=== PATIENT | male | born 1995 | race Caucasian/White ===

== ENCOUNTER 2016-09-13 18:08 | Emergency (ER) | payer BC ==
[~2016-09-13] VITALS: Ht 172.7 cm; Wt 68.6 kg
[2016-09-13 18:14] VITALS: Ht 172.7 cm; Wt 68.6 kg
[2016-09-13] MEDS ORDERED: DICYCLOMINE HCL 10 MG CAP PO STA (18:35)
[2016-09-13] MEDS ORDERED: ACETAMINOPHEN 500 MG TAB PO STA (18:35)
[2016-09-13] MEDS ORDERED: SODIUM CHLORIDE 0.9% 1000ML 1,000 ML IV STA (18:35)
--- NOTE | 2016-09-13 18:39 | EMERGENCY ROOM VISIT NOTE ---
History Report prepared by Sury: Sang Fernandez Under the Supervision of: Brianna IrbyO. First contact with patient: 18:25 Chief Complaint: ABDOMINAL PAIN Stated Complaint: HORRIBLE STOMACH PAINS, FEVER OF 102.2 History of Present Illness The patient is a 21 year old male who presents to the Emergency Room with complaints of a worsening illness that started 3 days ago. He says that when his illness started, he had a sore lower abdomen, which he described as "achy" and "crampy". The patient states that he has been having almost 15-20 episodes of nonbloody diarrhea per day, and he has had a fever, which peaked today at 102.2. The patient notes that he feels sore all over. Today, the patient says that his abdominal pain worsened, and has actually become painful. The pain was so bad that he had to leave work today. He did take ibuprofen earlier today. The patient went to a walk-in clinic prior to arrival, and was recommended to come here for evaluation. He denies any hematochezia or vomiting. He has been able to eat and drink normally. The patient notes that he just got over having influenza B a week ago. He has not had any recent antibiotics. The patient cannot pinpoint where his illness started, and not had any known sick contacts. He has no history of stomach problems, or family history of stomach problems. No recent travel. Source of History: patient Onset: 3 days ago Position: other (global - illness) Timing: worsening Associated Symptoms: + abdominal pain, + diarrhea, + fevers, No hematochezia , No vomiting Note: Associated symptoms: Achy all over. Review of Systems See HPI for pertinent positives & negatives. A total of 10 systems reviewed and were otherwise negative. Past Medical & Surgical Medical Problems: (1) Influenza B (2) No chronic problems Family History No pertinent family history Social History Smoking Status: Never Smoker Marital Status: single Occupation Status: employed Current/Historical Medications Scheduled PRN Dicyclomine Hcl (Bentyl), 20 MG PO Q8 PRN for abdominal cramps Allergies Coded Allergies: No Known Allergies (Unverified , 09/13/16) Physical Exam Vital Signs Date Time Temp Pulse Resp B/P Pulse Ox O2 Delivery O2 Flow Rate FiO2 09/13/16 21:07 92 18 120/64 97 Room Air 09/13/16 20:54 38.2 09/13/16 20:18 39.5 105 18 138/62 98 Room Air 09/13/16 18:14 38.1 112 18 124/58 97 Room Air Physical Exam GENERAL: alert, well appearing, well nourished, no distress, non-toxic EYE EXAM: normal conjunctiva, PERRL and EOM's grossly intact OROPHARYNX: no exudate, no erythema, lips, buccal mucosa, and tongue normal and mucous membranes are moist NECK: supple, no nuchal rigidity, no adenopathy, non-tender LUNGS: Clear to auscultation. Normal chest wall mechanics HEART: no murmurs, S1 normal and S2 normal ABDOMEN: Right upper quadrant tenderness with percussion but not with palpation , no rebound or guarding. Dull to percussion. BACK: Back is symmetrical on inspection and there is no deformity, no midline tenderness, no CVA tenderness. SKIN: no rashes and no bruising UPPER EXTREMITIES: upper extremities are grossly normal. LOWER EXTREMITIES: No pitting edema. NEURO EXAM: Normal sensorium, cranial nerves II-XII grossly intact, normal speech, no gross weakness of arms, no gross weakness of legs. No drift. Finger to nose intact. Gross sensation intact. Medical Decision & Procedures ER Provider Diagnostic Interpretation: Chest/abdomen x-ray reading by me: Chest: no acute process. Abdomen: No SBO, no free air. Laboratory Results 09/13/16 18:40 Red Blood Count 4.74, Mean Corpuscular Volume 92.0, Mean Corpuscular Hemoglobin 33.1, Mean Corpuscular Hemoglobin Concent 36.0, Mean Platelet Volume 9.8, Neutrophils (%) (Auto) 84.3, Lymphocytes (%) (Auto) 4.9, Monocytes (%) (Auto) 10.4, Eosinophils (%) (Auto) 0.2, Basophils (%) (Auto) 0.1, Neutrophils # (Auto ) 10.19, Lymphocytes # (Auto) 0.59, Monocytes # (Auto) 1.25, Eosinophils # (Auto ) 0.02, Basophils # (Auto) 0.01 09/13/16 18:40 Test 09/13/16 18:40 White Blood Count 12.07 K/uL (4.8-10.8) Red Blood Count 4.74 M/uL (4.7-6.1) Hemoglobin 15.7 g/dL (14.0-18.0) Hematocrit 43.6 % (42-52) Mean Corpuscular Volume 92.0 fL (80-100) Mean Corpuscular Hemoglobin 33.1 pg (25-34) Mean Corpuscular Hemoglobin Concent 36.0 g/dl (32-36) Platelet Count 228 K/uL (130-400) Mean Platelet Volume 9.8 fL (7.4-10.4) Neutrophils (%) (Auto) 84.3 % Lymphocytes (%) (Auto) 4.9 % Monocytes (%) (Auto) 10.4 % Eosinophils (%) (Auto) 0.2 % Basophils (%) (Auto) 0.1 % Neutrophils # (Auto) 10.19 K/uL (1.4-6.5) Lymphocytes # (Auto) 0.59 K/uL (1.2-3.4) Monocytes # (Auto) 1.25 K/uL (0.11-0.59) Eosinophils # (Auto) 0.02 K/uL (0-0.5) Basophils # (Auto) 0.01 K/uL (0-0.2) RDW Standard Deviation 42.2 fL (36.4-46.3) RDW Coefficient of Variation 12.5 % (11.5-14.5) Immature Granulocyte % (Auto) 0.1 % Immature Granulocyte # (Auto) 0.01 K/uL (0.00-0.02) Anion Gap 10.0 mmol/L (3-11) Est Creatinine Clear Calc Drug Dose 103.6 ml/min Estimated GFR () 111.4 Estimated GFR (Non- 96.1 BUN/Creatinine Ratio 10.6 (10-20) Calcium Level 9.7 mg/dl (8.5-10.1) Total Bilirubin 0.7 mg/dl (0.2-1) Aspartate Amino Transf (AST/SGOT) 48 U/L (15-37) Alanine Aminotransferase (ALT/SGPT) 70 U/L (12-78) Alkaline Phosphatase 62 U/L (45-117) Total Protein 8.4 gm/dl (6.4-8.2) Albumin 4.6 gm/dl (3.4-5.0) Globulin 3.8 gm/dl (2.5-4.0) Albumin/Globulin Ratio 1.2 (0.9-2) Lipase 109 U/L (73-393) Laboratory results per my review. Medications Administered Medications (Trade) Dose Ordered Sig/Olaf Route Start Time Stop Time Status Last Admin Dose Admin Sodium Chloride (Nss 1000ml) 1,000 ml @ 999 mls/hr Q1H1M STAT IV 09/13/16 18:35 09/13/16 19:35 DC 09/13/16 19:02 999 MLS/HR Dicyclomine HCl (Bentyl Cap) 20 mg ONE STAT PO 09/13/16 18:35 09/13/16 18:37 DC 09/13/16 18:46 20 MG Acetaminophen (Tylenol Tab) 1,000 mg NOW STAT PO 09/13/16 18:35 09/13/16 18:37 DC 09/13/16 18:45 1,000 MG Ketorolac Tromethamine (Toradol Inj) 30 mg NOW STAT IV 09/13/16 20:13 09/13/16 20:15 DC 09/13/16 20:17 30 MG ED Course 1827: The patient was evaluated in room C7. A complete history and physical exam was performed. 1834: Ordered Tylenol Tab 1000 mg PO, Bentyl Cap 20 mg PO, NSS 1000 ml @ 999 mls /hr IV. 2004: I reevaluated the patient and he is feeling better but is still achy and having abdominal pain. 2012: Ordered Toradol Inj 30 mg IV. 2100: Temp improved, pain improved. Medical Decision Differential diagnoses include: viral illness, bacterial illness, C. difficile, inflammatory bowel disease, colitis. Pt improved here with IVF and meds. Well appearing despite complaints. Nontoxic , likely viral syndrome. VS stable and HR improved with IVF. No diarrhea while in the ER. Abd soft, NT, xrays reassuring. Did not feel warranted additional imaging at this time, discussed risks/benefits of CT with pt. Discussed hydration at home, f/u with PCP, sx to watch/return for, he verbalized understanding and was agreeable with plan. Doubt perf, appy, c.diff , IBS, IBD, mesenteric ischemia, colitis, diverticulitis. Scribe Attestation The scribe's documentation has been prepared under my direction and personally reviewed by me in its entirety. I confirm that the note above accurately reflects all work, treatment, procedures, and medical decision making performed by me. Departure Information Dispostion Home / Self-Care Prescriptions Dicyclomine Hcl (BENTYL) 20 Mg Tab 20 MG PO Q8 Y for abdominal cramps, #20 TAB Prov: Nehal Lynn, DO 09/13/16 Referrals Joseph Retana M.D. (PCP) Patient Instructions [facility] Additional Instructions Please use tylenol and ibuprofen as needed for fever and body aches. Please drink clear liquids frequently to stay well hydrated. You may eat as tolerated. If you develop any worsening pain, vomiting, persistent fevers, have black or bloody stools, or have any other new concerns, please return to the emergency room.
[2016-09-13 19:05] LABS: BASO % 0.1 %; BASO ABS # 0.01 K/uL (0-0.2); COMPLETE YES; EOS % 0.2 %; HEMATOCRIT 43.6 % (42-52); IG% 0.1 %; LYMPH % 4.9 %; LYMPH ABS # 0.59 K/uL (1.2-3.4); MEAN CORPUSCULAR HEMOGLOBIN 33.1 pg (25-34); MEAN PLATELET VOLUME 9.8 fL (7.4-10.4); MONO % 10.4 %; NEUT % 84.3 %; PLATELET COUNT 228 K/uL (130-400); RED BLOOD COUNT 4.74 M/uL (4.7-6.1); WHITE BLOOD COUNT 12.07 K/uL (4.8-10.8)
[2016-09-13 19:23] LABS: BUN/CREATININE RATIO 10.6 (10-20); CALCIUM 9.7 mg/dl (8.5-10.1); CREATININE 1.1 mg/dl (0.60-1.40); POTASSIUM 3.5 mmol/L (3.5-5.1)
[2016-09-13 19:26] LABS: ALB/GLOB RATIO 1.2 (0.9-2)
[2016-09-13] MEDS ORDERED: KETOROLAC TROMETHAMINE 30 MG/ML VIAL IV STA (20:13)
--- NOTE | 2016-09-13 20:31 | DIAGNOSTIC IMAGING REPORT ---
CHEST AND ABDOMEN 2 VIEWS HISTORY: Generalized abdominal pain. Diarrhea. COMPARISON: FINDINGS: The lungs are clear. The cardiomediastinal silhouette is within normal limits. There is no pneumoperitoneum or pneumatosis. The bowel gas pattern is unremarkable. No evidence for bowel obstruction. No pathologic calcifications. Old, healed left 11th rib fracture. IMPRESSION: No acute cardiopulmonary process. No evidence for bowel obstruction. Electronically signed by: Raghav Chun M.D. 09/13/2016 8:29 PM Dictated Date/Time: 09/13/2016 8:24 PM
[2016-09-13] MEDS ORDERED: DICY20TA35 PO (20:36)
[2016-09-13 20:54] VITALS: TEMP 38.2
[2016-09-13 21:07] VITALS: BP 120/64; PULSE 92; O2SAT 97
--- NOTE | 2016-09-17 08:21 | EDITING REQUIRED CODING QUERY ---
TREATMENT RENDERED WITHOUT A DIAGNOSIS 96 To promote full compliance with coding requirements relating to patient care, physician participation is requested in all cases of contract accountant uncertainty. Please assist us with the question(s) below: DOS 09/13/16 Coding Question: Dr. Lynn, can you please add a final diagnosis for this patient Provider Response: Thank you Rosaura Beverly
== END 2016-09-13 21:10 | disposition home or self-care (01) ==
LOC: C.EDB 18:08 → C.EDC 21:10
DX: R10.9 Unspecified abdominal pain (principal); E86.0 Dehydration; B34.9 Viral infection, unspecified

== ENCOUNTER 2022-06-11 16:38 | Inpatient (IN) ==
[2022-06-11 17:50] LABS: Basophils # (auto) 0.03 K/uL (0-0.2); Basophils % (auto) 0.3 %; Eosinophils # (auto) 0.07 K/uL (0-0.50); Eosinophils % (auto) 0.7 %; Hematocrit (blood only) 44.2 % (40.1-51.0); Hemoglobin 15.6 g/dl (14.0-18.0); Immature Granulocytes # (auto) 0.03 K/uL (0.00-0.02); Immature Granulocytes % (auto) 0.3 %; Lymphocytes # (auto) 0.93 K/uL (1.2-3.4); Lymphocytes % (auto) 9.9 %; Mean Corpuscular Hemoglobin 34.4 pg (25.0-34.0); Mean Corpuscular Hgb Conc 35.3 g/dL (32.0-36.0); Mean Corpuscular Volume 97.4 fL (80.0-100.0); Mean Platelet Volume 10.2 fL (9.4-12.4); Monocytes # (auto) 0.98 K/uL (0.24-0.82); Monocytes % (auto) 10.5 %; Neutrophils # (auto) 7.33 K/uL (1.4-6.5); Neutrophils % (auto) 78.3 %; Platelet Count 215 K/uL (130-400); RDW Coefficient of Variation 12.2 % (11.5-14.5); RDW Standard Deviation 43.8 fL (36.4-46.3); Red Blood Count 4.54 M/uL (4.63-6.08); White Blood Count 9.37 K/ul (4.8-10.8)
[2022-06-11 17:55] LABS: Appearance Urine Clear (Clear); Bacteria Urine Automated Negative (Negative); Blood Urine Negative (Negative); Color Urine Dark Yellow; Glucose Urine UA Negative (Negative); Ketones Urine 1+ (Negative); Leukocyte Esterase Urine Negative (Negative); Nitrite Urine Negative (Negative); Protein Urine 1+ (Negative); RBC Urine Automated 0-4 /hpf (0-4); Specific Gravity Urine 1.027 (1.000-1.030); Urobilinogen Urine Negative (Negative); pH Urine 5.5 (4.5-7.5)
[2022-06-11 17:57] LABS: Bilirubin Urine 1+ (Negative)
[2022-06-11 18:10] LABS: Albumin Globulin Ratio 1.8 (0.9-2); Albumin Level 5.1 gm/dl (3.4-5.0); BUN Creatinine Ratio 9.6 (10-20); Bilirubin,Total 0.7 mg/dl (0.2-1.0); Calcium 9.9 mg/dl (8.5-10.1); Est GFR (African American) 148.4 ml/min; Globulin 2.8 gm/dl (2.5-4.0); Total Protein 7.9 gm/dl (6.0-8.3)
[2022-06-11] MEDS ORDERED: SODIUM CHLORIDE 0.9% 1000ML 1,000 ML IV ONE (19:17)
[2022-06-11] MEDS ORDERED: FAMOTIDINE 20 MG in SYRINGE 3 ML IV STA (19:17)
[2022-06-11] MEDS ORDERED: ONDANSETRON INJ 2 MG/ML 2 ML VIAL IV STA (19:23)
[2022-06-11] MEDS ORDERED: MoRPHine SULFATE 4 MG/ML 1 ML CARP\\VIAL IV STA (19:23)
[2022-06-11] MEDS ORDERED: OPTIRAY 350 100ml IV ONE (19:40)
--- NOTE | 2022-06-11 19:52 | CT Scan Report ---
ABDOMEN AND PELVIS CT WITH IV CONTRAST CT DOSE: 286.26 mGy.cm HISTORY: Generalized Abd pain, elevated LFT, LLQ, periumbilical pain TECHNIQUE: Multiaxial CT images of the abdomen and pelvis were performed following the use of intrave nous contrast. A dose lowering technique was utilized adhering to the principles of ALARA. COMPARISON STUDY: Chest and abdominal series 09/13/2016. FINDINGS: The lung bases are clear. No pneumoperitoneum. No pneumatosis. No acute fractures identifie d. There is an old, healed left posterior 11th rib fracture. Severe hepatic steatosis. The gallbladde r, spleen, adrenal glands, and kidneys are unremarkable. No hydronephrosis. There is near diffuse per ipancreatic edema/inflammatory change. This is consistent with an acute pancreatitis. No peripancreat ic fluid collections or pancreatic necrosis identified at this time. The main portal vein and superio r mesenteric veins are patent. Normal caliber abdominal aorta. No retroperitoneal lymphadenopathy. Tr carley ascites. The bladder is unremarkable. A few colonic diverticula. No evidence for acute diverticul itis. Mild inflammatory change surrounding the splenic flexure of the colon and duodenum is likely du e to the adjacent acute pancreatitis. Otherwise, no definite bowel wall thickening or obstruction. No rmal appendix. IMPRESSION: 1. Diffuse peripancreatic inflammatory change/edema consistent with an acute pancreatitis. 2. Severe hepatic steatosis. 3. Trace ascites. 4. Colonic diverticulosis. No evidence for acute diverticulitis. ACT 112: Negative or not required by law. Electronically signed by: Raghav Chun M.D. 06/11/2022 7:51 PM
--- NOTE | 2022-06-11 20:07 | Emergency Department Note ---
Impression & Plan Pancreatitis ED Provider Note CHIEF COMPLAINT: Abdominal pain HISTORY OF PRESENT ILLNESS: This 27-year-old male patient presents to the emergency department with complaints of abdominal pain. The patient states 2 to 3 days ago he began with epigastric abdominal pain and had several episodes of sharp pain through to his back. He states the pain has since radiated to the periumbilical region and now he feels tender to the lower abdomen. He is taken several doses of antacids in an effort to alleviate the discomfort. He states he feels constipated but did have several small bowel movements over the last few days. He was visiting their camp with his uncles this weekend and had heavy alcohol consumption. Patient states he drinks about once weekly regularly. Patient denies any fevers or blood in the stools. He has not had any significant vomiting. Patient denies any trauma to the abdomen. He does not believe he has been exposed to hepatitis in the past. He denies any past s urgical history on the abdomen. REVIEW OF SYSTEMS: A review of systems was performed with positives and pertinent negatives listed in the history of present illness. 10 systems were reviewed and are otherwise negative. ALLERGIES: see below MEDICATIONS: see below PMH: see below SOCIAL HISTORY: see below DDx: Appendicitis, diverticulitis, UTI, obstruction, mesenteric ischemia, aortic pathology, inflammatory bowel disease, renal colic, PUD, pancreatitis, biliary pathology, hernia, volvulus, constipation, as well as other pathologies. PHYSICAL EXAM: Vital signs reviewed. Noted to be hypertensive General: Well-appearing 27-year-old, in some discomfort. HEENT: No scleral icterus, PERRLA, neck supple. Atraumatic. Cardiovascular: Regular rate and rhythm, no extra sounds. Pulmonary: Clear to auscultation bilaterally, normal work of breathing. Abdomen: Soft, tender to palpation over the periumbilical region and left lower quadrant, minimal discomfort over the epigastric region, nondistended, positive bowel sounds. Musculoskeletal: Atraumatic, no peripheral edema. Neurologic: Patient awake alert and oriented x 3, speech is clear Skin: Warm, dry, no rash EMERGENCY DEPARTMENT COURSE/MDM: This patient was evaluated and appeared to be in no significant distress. He was a bit anxious on my initial exam. IV access was obtained and laboratory work was drawn. He was hydrated with normal saline solution, given IV morphine and Zofran for his discomfort. Patient was also giv en 20 mg of IV Pepcid. Laboratory work was reviewed and reveals elevated liver enzymes as well as a lipase of 550. CT imaging of the abdomen pelvis was ordered and is indicative of peripancreatic infiltration and severe hepatic steatosis. Patient will require hospitalization. Hospitalist service was contacted for further evaluation and management. Patient was made aware of the findings and plan and agreed. MONITORING: An order for cardiac monitoring was placed and the patient is noted to be in a normal sinus rhythm at 85 beats per minute. RADIOLOGY: See below DISPOSITION: Admission Past Med/Surg History Medical History Pancreatitis Surgical History No significant past surgical history Family History Unknown No problems noted. Uncle Pancreatitis Social History Smoking Status: Light tobacco smoker Hx Alcohol Use: Yes Preferred Language: Frisian Communication Ability: Effective Mail[employer] Required: No Beliefs That Will Affect Care: None Current Living Situation: Parent Feels Safe at Home: Yes Assistive Devices: None Allergies Allergies Allergy/AdvReac Type Severity Reaction Status Date / Time No Known Allergies Allergy Unverified 09/13/16 18:29 Home Meds Home Medications Medication Instructions Recorded Confirmed No Known Home Medications 06/11/22 06/11/22 Results & Data (ED) Vital Signs Vital Signs - 24 hr 06/11/22 16:43 Temperature 36.2 C L Temperature Source Temporal Artery Scan Pulse Rate 85 Pulse Rhythm Regular Pulse Strength Normal Respiratory Rate 20 Respiratory Effort / Characteristics Non-Labored Spontaneous Respiratory Depth Normal Respiratory Pattern Regular Blood Pressure 168/102 H Blood Pressure Mean 124 Blood Pressure Position Sitting Pulse Oximetry 98 Oxygen Delivery Method Room Air Sepsis Recent Fever Within 48 Hours No Sepsis New/Unexplained Change in Mental Status No Sepsis Action Taken by Nursing No Action Required Home Medications Current Medication List: was personally reviewed by me Laboratory Data Attestation: I reviewed the patient's lab results. 06/11/22 17:37 06/11/22 17:37 Lab Results 06/11/22 06/11/22 06/11/22 Range/Units 17:37 17:37 17:37 WBC 9.37 (4.8-10.8) K/ul RBC 4.54 L (4.63-6.08) M/uL Hgb 15.6 (14.0-18.0) g/dl Hct 44.2 (40.1-51.0) % MCV 97.4 (80.0-100.0) fL MCH 34.4 H (25.0-34.0) pg MCHC 35.3 (32.0-36.0) g/dL RDW Std Deviation 43.8 (36.4-46.3) fL RDW Coeff of Brett 12.2 (11.5-14.5) % Plt Count 215 (130-400) K/uL MPV 10.2 (9.4-12.4) fL Immature Gran % (Auto) 0.3 % Neut % (Auto) 78.3 % Lymph % (Auto) 9.9 % Maury % (Auto) 10.5 % Eos % (Auto) 0.7 % Baso % (Auto) 0.3 % Neut # (Auto) 7.33 H (1.4-6.5) K/uL Lymph # (Auto) 0.93 L (1.2-3.4) K/uL Maury # (Auto) 0.98 H (0.24-0.82) K/uL Eos # (Auto) 0.07 (0-0.50) K/uL Baso # (Auto) 0.03 (0-0.2) K/uL Immature Gran # (Auto) 0.03 H (0.00-0.02) K/uL Sodium 140 (136-145) mmol/L Potassium 4.0 (3.5-5.1) mmol/L Chloride 103 (98-107) mmol/L Carbon Dioxide 27 (21-32) mmol/L Anion Gap 10 (3-11) BUN 7 (6-23) mg/dl Creatinine 0.73 (0.6-1.4) mg/dl Est Cr Clr Drug Dosing 133.0 ml/min Est GFR ( Amer) 148.4 ml/min Est GFR (Non-Af Amer) 128.0 ml/min BUN/Creatinine Ratio 9.6 L (10-20) Glucose 94 (70-99(Fasting)) mg/dl Calcium 9.9 (8.5-10.1) mg/dl Total Bilirubin 0.7 (0.2-1.0) mg/dl AST 156 H (13-39) U/L ALT 139 H (7-52) U/L Alkaline Phosphatase 43 (34-104) U/L Total Protein 7.9 (6.0-8.3) gm/dl Albumin 5.1 H (3.4-5.0) gm/dl Globulin 2.8 (2.5-4.0) gm/dl Albumin/Globulin Ratio 1.8 (0.9-2) Lipase 555 H (11-82) U/L Urine Color Dark Yellow Urine Appearance Clear (Clear) Urine pH 5.5 (4.5-7.5) Ur Specific [place] 1.027 (1.000-1.030) Urine Protein 1+ H (Negative) Urine Glucose (UA) Negative (Negative) Urine Ketones 1+ H (Negative) Urine Blood Negative (Negative) Urine Nitrite Negative (Negative) Urine Bilirubin 1+ H (Negative) Urine Urobilinogen Negative (Negative) Ur Leukocyte Esterase Negative (Negative) Urine WBC (Auto) 1-5 (0-5) /hpf Urine RBC (Auto) 0-4 (0-4) /hpf U Hyaline Cast (Auto) 1-5 (0-5) /lpf U Epithel Cells (Auto) 5-10 H (0-5) /lpf Urine Bacteria (Auto) Negative (Negative) SARS-CoV-2, RNA, NAAT (NEGATIVE) 06/11/22 Range/Units 20:12 WBC (4.8-10.8) K/ul RBC (4.63-6.08) M/uL Hgb (14.0-18.0) g/dl Hct (40.1-51.0) % MCV (80.0-100.0) fL MCH (25.0-34.0) pg MCHC (32.0-36.0) g/dL RDW Std Deviation (36.4-46.3) fL RDW Coeff of Brett (11.5-14.5) % Plt Count (130-400) K/uL MPV (9.4-12.4) fL Immature Gran % (Auto) % Neut % (Auto) % Lymph % (Auto) % Maury % (Auto) % Eos % (Auto) % Baso % (Auto) % Neut # (Auto) (1.4-6.5) K/uL Lymph # (Auto) (1.2-3.4) K/uL Maury # (Auto) (0.24-0.82) K/uL Eos # (Auto) (0-0.50) K/uL Baso # (Auto) (0-0.2) K/uL Immature Gran # (Auto) (0.00-0.02) K/uL Sodium (136-145) mmol/L Potassium (3.5-5.1) mmol/L Chloride (98-107) mmol/L Carbon Dioxide (21-32) mmol/L Anion Gap (3-11) BUN (6-23) mg/dl Creatinine (0.6-1.4) mg/dl Est Cr Clr Drug Dosing ml/min Est GFR ( Amer) ml/min Est GFR (Non-Af Amer) ml/min BUN/Creatinine Ratio (10-20) Glucose (70-99(Fasting)) mg/dl Calcium (8.5-10.1) mg/dl Total Bilirubin (0.2-1.0) mg/dl AST (13-39) U/L ALT (7-52) U/L Alkaline Phosphatase (34-104) U/L Total Protein (6.0-8.3) gm/dl Albumin (3.4-5.0) gm/dl Globulin (2.5-4.0) gm/dl Albumin/Globulin Ratio (0.9-2) Lipase (11-82) U/L Urine Color Urine Appearance (Clear) Urine pH (4.5-7.5) Ur Specific [place] (1.000-1.030) Urine Protein (Negative) Urine Glucose (UA) (Negative) Urine Ketones (Negative) Urine Blood (Negative) Urine Nitrite (Negative) Urine Bilirubin (Negative) Urine Urobilinogen (Negative) Ur Leukocyte Esterase (Negative) Urine WBC (Auto) (0-5) /hpf Urine RBC (Auto) (0-4) /hpf U Hyaline Cast (Auto) (0-5) /lpf U Epithel Cells (Auto) (0-5) /lpf Urine Bacteria (Auto) (Negative) SARS-CoV-2, RNA, NAAT NEGATIVE (NEGATIVE) Administered Medications Discontinued Medications Folic Acid (Folic Acid 1 Mg Tab) 1 mg PO QAM RASHMI Stop: 07/12/22 08:59 Last Admin: 06/13/22 09:18 Dose: 1 mg Documented By: Admin: 06/12/22 10:36 Dose: 1 mg Documented By: CAROL Famotidine 20 mg/ Syringe 5 mls @ 2.5 mls/min IV NOW STA Stop: 06/11/22 19:18 Last Admin: 06/11/22 20:40 Dose: 2.5 mls/min Documented By: CARMEN Sodium Chloride (Nss 1000ml) 1,000 mls @ 999 mls/hr IV .Q1H1M ONE Stop: 06/11/22 20:17 Last Infusion: 06/11/22 23:58 Dose: 0 mls/hr Documented By: Admin: 06/11/22 19:46 Dose: 999 mls/hr Documented By: ABDI Lactated Ringer's (Lr) 500 mls @ 999 mls/hr IV .Q31M ONE Stop: 06/11/22 21:36 Last Infusion: 06/11/22 23:58 Dose: 0 mls/hr Documented By: Admin: 06/11/22 21:28 Dose: 999 mls/hr Documented By: ABDI Lactated Ringer's (Lr) 1,000 mls @ 125 mls/hr IV .Q8H [facility] Stop: 07/11/22 22:03 Last Admin: 06/13/22 06:07 Dose: 125 mls/hr Documented By: Infusion: 06/13/22 00:48 Dose: 0 mls/hr Documented By: Admin: 06/12/22 17:19 Dose: 125 mls/hr Documented By: Infusion: 06/12/22 17:19 Dose: 125 mls/hr Documented By: Admin: 06/12/22 09:53 Dose: 125 mls/hr Documented By: Infusion: 06/12/22 09:53 Dose: 125 mls/hr Documented By: Admin: 06/12/22 07:00 Dose: 125 mls/hr Documented By: Infusion: 06/12/22 06:29 Dose: 0 mls/hr Documented By: Admin: 06/11/22 22:29 Dose: 125 mls/hr Documented By: ABDI Famotidine 20 mg/ Syringe 5 mls @ 2.5 mls/min IV Q12H RASHMI Stop: 07/12/22 08:59 Last Admin: 06/13/22 09:15 Dose: 2.5 mls/min Documented By: Admin: 06/12/22 21:20 Dose: 2.5 mls/min Documented By: Admin: 06/12/22 10:37 Dose: 2.5 mls/min Documented By: CAROL Pantoprazole Sodium 40 mg/ (Syringe) 10 mls @ 5 mls/min IV BID RASHMI Stop: 07/12/22 08:59 Last Admin: 06/13/22 09:18 Dose: 5 mls/min Documented By: Admin: 06/12/22 21:17 Dose: 5 mls/min Documented By: Admin: 06/12/22 10:37 Dose: 5 mls/min Documented By: CAROL Magnesium Sulfate/Dextrose (Magnesium Sulfate / D5w) 1 gm in 100 mls @ 50 mls/hr IV Q2H RASHMI Stop: 06/12/22 17:59 Last Infusion: 06/12/22 19:13 Dose: 0 mls/hr Documented By: Admin: 06/12/22 17:11 Dose: 50 mls/hr Documented By: Infusion: 06/12/22 16:36 Dose: 0 mls/hr Documented By: Admin: 06/12/22 14:22 Dose: 50 mls/hr Documented By: CAROL Ioversol (Optiray 350 100ml) 88 ml IV ONCE ONE Stop: 06/11/22 19:41 Last Admin: 06/11/22 19:42 Dose: 88 ml Documented By: KALI Ketorolac Tromethamine (Ketorolac Tromethamine 15 Mg/Ml Vial) 15 mg IV Q6H PRN PRN Reason: Mild Pain Stop: 06/16/22 22:03 Last Admin: 06/12/22 21:20 Dose: 15 mg Documented By: Admin: 06/11/22 22:28 Dose: 15 mg Documented By: ABDI Morphine Sulfate (Morphine Sulfate 4 Mg/Ml 1 Ml Carp\Vial) 4 mg IV NOW STA Stop: 06/11/22 19:24 Last Admin: 06/11/22 19:45 Dose: 4 mg Documented By: AMS Morphine Sulfate (Morphine Sulfate 4 Mg/Ml 1 Ml Carp\Vial) 4 mg IV Q3H PRN PRN Reason: Severe Pain Stop: 06/25/22 22:03 Last Admin: 06/12/22 03:18 Dose: 4 mg Documented By: MED Ondansetron HCl (Ondansetron Inj 2 Mg/Ml 2 Ml Vial) 4 mg IV NOW STA Stop: 06/11/22 19:24 Last Admin: 06/11/22 19:45 Dose: 4 mg Documented By: AMS Ondansetron HCl (Ondansetron Inj 2 Mg/Ml 2 Ml Vial) 4 mg IV Q6H PRN PRN Reason: Nausea Stop: 07/11/22 22:03 Last Admin: 06/12/22 03:15 Dose: 4 mg Documented By: MED Thiamine HCl (Thiamine Hcl 100 Mg Tab) 100 mg PO QAM RASHMI Stop: 07/12/22 08:59 Last Admin: 06/13/22 09:18 Dose: 100 mg Documented By: Admin: 06/12/22 10:36 Dose: 100 mg Documented By: CAROL Imaging Data Radiologist's Impression: Abdomen/Pelvis CT 06/11/22 19:[address] WITH IV CONTRAST CT DOSE: 286.26 mGy.cm HISTORY: Generalized Abd pain, elevated LFT, LLQ, periumbilical pain TECHNIQUE: Multiaxial CT images of the abdomen and pelvis were performed following the use of intravenous contrast. A dose lowering technique was utilized adhering to the principles of ALARA. COMPARISON STUDY: Chest and abdominal series 09/13/2016. FINDINGS: The lung bases are clear. No pneumoperitoneum. No pneumatosis. No acut e fractures identified. There is an old, healed left posterior 11th rib fracture. Severe hepatic steatosis. The gallbladder, spleen, adrenal glands, and kidneys are unremarkable. No hydronephrosis. There is near diffuse peripancreatic edema/inflammatory change. This is consistent with an acute pancr eatitis. No peripancreatic fluid collections or pancreatic necrosis identified at this time. The main portal vein and superior mesenteric veins are patent. Normal caliber abdominal aorta. No retroperitoneal lymphadenopathy. Trace ascites. The bladder is unremarkable. A few colonic diverticula. No evidence for acute diverticulitis. Mild inflammatory change surrounding the splenic flexure of the colon and duodenum is likely due to the adjacent acute pancreatitis. Otherwise, no definite bowel wall thickening or obstruction. Normal appendix. IMPRESSION: 1. Diffuse peripancreatic inflammatory change/edema consistent with an acute pancreatitis. 2. Severe hepatic steatosis. 3. Trace ascites. 4. Colonic diverticulosis. No evidence for acute diverticulitis. ACT 112: Negative or not required by law. Electronically signed by: Raghav Chun M.D. 06/11/2022 7:51 PM Discharge Plan Visit Data Chief Complaint: Abdominal Pain Stated Complaint: SEVERE STOMACH PAINS,FEVER, ED Provider: Linda Viramontes Discharge Problem: Pancreatitis Patient Disposition: Admitted As Inpatient Discharge Instructions Interventions: ED Discharge Assessment Last Done: 06/11/22 22:13 : Pancreatitis Qualifiers: Chronicity: acute Pancreatitis type: alcohol induced Acute pancreatitis complication: unspecified Qualified Code(s): K85.20 - Alcohol induced acute pancreatitis without necrosis or infection
--- NOTE | 2022-06-11 20:48 | History & Physical Report ---
Date of Service June 11, 2022 Assessment & Plan (1) Pancreatitis: Plan: - 3 days of central abdominal pain with radiation to back, nausea following binge drinking this weekend. - Lipase 555. - CTAP: Diffuse peripancreatic inflammatory change/edema consistent with an acute pancreatitis. Severe hepatic steatosis. Trace ascites. Colonic diverticulosis. No evidence for acute diverticulitis. - Received IVF in ED, continue IVF overnight, IV Toradol, morphine for pain control, Zofran for nausea/vomiting. - NPO for now, can consider advancing diet tomorrow afternoon/evening if pain well controlled and improving. - AWSS at risk protocol. Patient denies regular alcohol use beyond once/weekly or history of withdrawal, though CT A/P has severe hepatic steatosis. Plan - Admit to med/surg with telemetry for AWSS. - SCDs for VTE ppx; defer chemoppx given age, mobility. - Full Code. History of Present Illness Chief Complaint: abdominal pain x 2 days Primary Care Provider: Joseph Retana MD Ryder Meza is a 27-year-old previously healthy male who is presenting today with abdominal pain. This weekend he was at his [place] binge drinking, reports about 10 alcoholic drinks Saturday evening. Saturday morning he woke up with abdominal pain that was worse after eating a light breakfast. He continued to drink a couple alcoholic beverages Saturday, but notes the abdominal pain persisted and got worse. It is primarily in the central abdomen around his umbilicus with radiation to his back. He has not noticed any fever or chills or vomiting but has been nauseous with minimal oral intake since then. He notes other than this weekend, he typically only drinks 12 times/week, does not have a history of regular alcohol use or withdrawal. No drug use, rare tobacco use. No trauma to the abdomen. Upon presentation to the ED, he is hypertensive 169/106, otherwise vital signs within norm limits and stable. Labs notable for a lipase of 555, AST 156, ALT 139. His T bili is 0.7. CT A/P shows diffuse peripancreatic inflammatory changes and edema consistent with an acute pancreatitis, severe hepatic steatosis, trace ascites and diverticulosis without evidence of acute diverticulitis. Allergies Allergy/AdvReac Type Severity Reaction Status Date / Time No Known Allergies Allergy Unverified 09/13/16 18:29 Home Medications Medication Instructions Recorded Confirmed Type No Known Home Medications 06/11/22 06/11/22 History Past Med/Surg History Medical History (Updated 06/11/22 @ 21:48 by Tamika Krause PA-C) Pancreatitis Surgical History (Updated 06/11/22 @ 21:50 by Tamika Krause PA-C) No significant past surgical history Family History (Updated 06/11/22 @ 21:49 by Tamika Krause PA-C) Unknown No problems noted. Uncle Pancreatitis Social History Smoking Status: Light tobacco smoker Hx Alcohol Use: Yes Preferred Language: [place] Communication Ability: Effective [employer] Required: No Beliefs That Will Affect Care: None Current Living Situation: Parent Feels Safe at Home: Yes Safety Concerns: Feels Safe At This Time Assistive Devices: None Review of Systems Review of Systems: Constitutional: No fever/chills, weakness, fatigue, myalgias, anorexia, night sweats Eyes: No diplopia, no worsening or blurred vision ENT: normal hearing, no trouble swallowing Respiratory: No cough, sputum, dyspnea at rest or on exertion Cardiovascular: No chest pain, tightness or palpitations Abdomen: abdominal pain, nausea x 3 days : Denies dysuria, hematuria, increased urgency/frequency, urinary retention Musculoskeletal: No joint pain, calf pain, swelling Neurologic: No weakness, numbness/tingling, or balance problems Psychiatric: No anxiety or depression Skin: No rash or itch Physical Exam Physical Exam: General: awake, alert, no apparent distress Head: Normocephalic, atraumatic ENT: PERRL, EOMI, no pharyngeal exudate, mucous membranes moist Chest: Clear to auscultation, on room air, no adventitious breath sounds Cardiac: Regular rate and rhythm, no murmur, no JVD, normal peripheral pulses, good capillary refill Abdominal: TTP in central abdomen around umbilicus without rebound or guarding; NABS x 4 quadrants, soft Extremities: Normal inspection, no peripheral edema or erythema, calfs nontender to palpation Psych: Normal mood and affect Neuro: AAO x 3, strength intact bilaterally and rated 5/5, no motor deficits, speech is clear, no peripheral sensory deficits Skin: no rash or erythema Results & Data Results & Data ([facility]) Vital Signs (Past 12 Hours) Vital Signs Temp Pulse Resp BP Pulse Ox O2 Del Method 06/11/22 16:43 36.2 C L 85 20 168/102 H 98 Room Air Laboratory Results Abnormal lab results 06/11/22 06/11/22 06/11/22 Range/Units 17:37 17:37 17:37 RBC 4.54 L (4.63-6.08) M/uL MCH 34.4 H (25.0-34.0) pg Neut # (Auto) 7.33 H (1.4-6.5) K/uL Lymph # (Auto) 0.93 L (1.2-3.4) K/uL Hand # (Auto) 0.98 H (0.24-0.82) K/uL Immature Gran # (Auto) 0.03 H (0.00-0.02) K/uL BUN/Creatinine Ratio 9.6 L (10-20) AST 156 H (13-39) U/L ALT 139 H (7-52) U/L Albumin 5.1 H (3.4-5.0) gm/dl Lipase 555 H (11-82) U/L Urine Protein 1+ H (Negative) Urine Ketones 1+ H (Negative) Urine Bilirubin 1+ H (Negative) U Epithel Cells (Auto) 5-10 H (0-5) /lpf Diagnostic Findings Abdomen/Pelvis CT 06/11/22 19:[address] WITH IV CONTRAST CT DOSE: 286.26 mGy.cm HISTORY: Generalized Abd pain, elevated LFT, LLQ, periumbilical pain TECHNIQUE: Multiaxial CT images of the abdomen and pelvis were performed following the use of intravenous contrast. A dose lowering technique was utilized adhering to the principles of ALARA. COMPARISON STUDY: Chest and abdominal series 09/13/2016. FINDINGS: The lung bases are clear. No pneumoperitoneum. No pneumatosis. No acute fractures identified. There is an old, healed left posterior 11th rib fracture. Severe hepatic steatosis. The gallbladder, spleen, adrenal glands, and kidneys are unremarkable. No hydronephrosis. There is near diffuse peripancreatic edema/inflammatory change. This is consistent with an acute pancreatitis. No peripancreatic fluid collections or pancreatic necrosis identified at this time. The main portal vein and superior mesenteric veins are patent. Normal caliber abdominal aorta. No retroperitoneal lymphadenopathy. Trace ascites. The bladder is unremarkable. A few colonic diverticula. No evidence for acute diverticulitis. Mild inflammatory change surrounding the splenic flexure of the colon and duodenum is likely due to the adjacent acute pancreatitis. Otherwise, no definite bowel wall thickening or obstruction. Normal appendix. IMPRESSION: 1. Diffuse peripancreatic inflammatory change/edema consistent with an acute pancreatitis. 2. Severe hepatic steatosis. 3. Trace ascites. 4. Colonic diverticulosis. No evidence for acute diverticulitis. ACT 112: Negative or not required by law. Electronically signed by: Raghav Chun M.D. 06/11/2022 7:51 PM Code Status & VTE Plan Code Status Full Code. Supervising Physician Co-Signing Physician Notes attending addendum: I have physically seen this patient, have supervised the KAYLYNN's activities, and agree with the H&P unless as otherwise noted. Assessment and Plan: Transaminitis/pancreatitis- Likely secondary to alcohol abuse AST 156, ALT 139, lipase 555 on admission Follow labs serially CT showing severe hepatic steatosis and acute pancreatitis Alcohol use issues- CT showing severe hepatic steatosis with suggest the patient's alcohol intake is more than he admits AWSS protocol Alcohol cessation counseling Remaining orders and notations as noted PG Care Time/CCT Total # of Minutes Spent Total Time Spent with Patient: Total time spent is greater than 50% in coordination of care (as documented) at patient's floor/unit and/or counseling patient: Coding Level of Care Code 09566 INT INP/OBS CARE MIN Diagnoses Pancreatitis K85.90
[2022-06-11] MEDS ORDERED: LACTATED RINGER'S 500 ML IV ONE (21:06)
[2022-06-11] MEDS ORDERED: ONDANSETRON INJ 2 MG/ML 2 ML VIAL IV PRN (22:04)
[2022-06-11] MEDS ORDERED: MoRPHine SULFATE 2 MG/ML CARP IV PRN (22:04)
[2022-06-11] MEDS ORDERED: MoRPHine SULFATE 4 MG/ML 1 ML CARP\\VIAL IV PRN (22:04)
[2022-06-11] MEDS: KETOROLAC TROMETHAMINE 15 MG/ML VIAL IV PRN (22:28)
[2022-06-11] MEDS: LACTATED RINGER'S 1,000 ML IV SCH (22:29)
[2022-06-11] MEDS ORDERED: Ativan PO Alcohol Withdrawal--Active Protocol PO PRN (22:53)
[2022-06-11] MEDS ORDERED: LORazepam 1 MG TAB PO PRN ×3 (22:53)
[2022-06-11 23:42] LABS: Partial Thromboplastin Time 27.9 Seconds (21.0-31.0); Prothrombin Time 10.8 Seconds (9.0-12.0)
[2022-06-12 05:02] LABS: Basophils # (auto) 0.06 K/uL (0-0.2); Basophils % (auto) 0.6 %; Eosinophils # (auto) 0.04 K/uL (0-0.50); Eosinophils % (auto) 0.4 %; Hematocrit (blood only) 40.1 % (40.1-51.0); Hemoglobin 14.3 g/dl (14.0-18.0); Immature Granulocytes # (auto) 0.04 K/uL (0.00-0.02); Immature Granulocytes % (auto) 0.4 %; Lymphocytes # (auto) 0.95 K/uL (1.2-3.4); Lymphocytes % (auto) 9.2 %; Mean Corpuscular Hemoglobin 35.4 pg (25.0-34.0); Mean Corpuscular Hgb Conc 35.7 g/dL (32.0-36.0); Mean Corpuscular Volume 99.3 fL (80.0-100.0); Mean Platelet Volume 10.4 fL (9.4-12.4); Monocytes # (auto) 1.47 K/uL (0.24-0.82); Monocytes % (auto) 14.2 %; Neutrophils # (auto) 7.82 K/uL (1.4-6.5); Neutrophils % (auto) 75.2 %; Platelet Count 187 K/uL (130-400); RDW Standard Deviation 44.1 fL (36.4-46.3); Red Blood Count 4.04 M/uL (4.63-6.08); White Blood Count 10.38 K/ul (4.8-10.8)
[2022-06-12 05:41] LABS: Alanine Aminotransferase 101 U/L (7-52); Albumin Globulin Ratio 1.5 (0.9-2); Albumin Level 4.1 gm/dl (3.4-5.0); Alkaline Phosphatase 34 U/L (34-104); Anion Gap 13 (3-11); Aspartate Aminotransferase 95 U/L (13-39); BUN Creatinine Ratio 11.4 (10-20); Bilirubin,Total 1.1 mg/dl (0.2-1.0); Blood Urea Nitrogen 8 mg/dl (6-23); Calcium 9.4 mg/dl (8.5-10.1); Carbon Dioxide 21 mmol/L (21-32); Chloride 102 mmol/L (98-107); Creatinine Clr Calc Pharmacy 138.7 ml/min; Est GFR (African American) > 150.0 ml/min; Est GFR (Non-African American) 130.2 ml/min; Globulin 2.7 gm/dl (2.5-4.0); Glucose 65 mg/dl (70-99(Fasting)); Lipase 349 U/L (11-82); Magnesium 1.5 mg/dl (1.7-2.4); Potassium 4.2 mmol/L (3.5-5.1); Sodium 136 mmol/L (136-145); Total Protein 6.8 gm/dl (6.0-8.3)
[2022-06-12] MEDS: LACTATED RINGER'S 1,000 ML IV SCH ×3 (07:00→17:19)
[2022-06-12] MEDS: THIAMINE HCL 100 MG TAB PO SCH (10:36)
[2022-06-12] MEDS: FOLIC ACID 1 MG TAB PO SCH (10:36)
[2022-06-12] MEDS: FAMOTIDINE 20 MG in SYRINGE 3 ML IV SCH ×2 (10:37→21:20)
[2022-06-12] MEDS: PANTOprazole 40 MG in SYRINGE 0 ML IV SCH ×2 (10:37→21:17)
[2022-06-12] MEDS: MAGNESIUM SULFATE / D5W 1 GM/100 ML BAG IV SCH ×2 (14:22→17:11)
[2022-06-12] MEDS: KETOROLAC TROMETHAMINE 15 MG/ML VIAL IV PRN (21:20)
--- NOTE | 2022-06-12 22:26 | Hospitalist Progress Note ---
Date of Service June 12, 2022 Assessment & Plan (1) Pancreatitis: Plan: - 3 days of central abdominal pain with radiation to back, nausea following binge drinking this weekend. - Lipase 555. - CTAP: Diffuse peripancreatic inflammatory change/edema consistent with an acute pancreatitis. Severe hepatic steatosis. Trace ascites. Colonic diverticulosis. No evidence for acute diverticulitis. - Received IVF in ED, continue IVF overnight, IV Toradol, morphine for pain control, Zofran for nausea/vomiting. - advance diet to low fat in AM. Appears alcohol is likley playing a large role. Patient will need to establish with a PCP to closely monitor his liver function. Had extensive discussion regarding alcohol intake and recommended alcohol counselling. Patient refused as he states he has family support. - AWSS at risk protocol. Patient denies regular alcohol use beyond once/weekly or history of withdrawal, though CT A/P has severe hepatic steatosis. Plan - Admit to med/surg with telemetry for AWSS. - SCDs for VTE ppx; defer chemoppx given age, mobility. - Full Code. Admission and Anticipated Discharge Date Admission Date: June 11, 2022 Subjective Patient reports feeling well. Review of Systems Review of Systems: All systems reviewed & are unremarkable except as noted in HPI & below Physical Exam Constitutional: WD/WN, vitals as above Eyes: PERRL, conjunctivae normal, anicteric sclerae ENMT: external ear and nose normal, oropharynx normal Neck: trachea midline, no thyromegaly Respiratory: normal respiratory effort, lungs clear to auscultation Cardiovascular: RRR, no murmur, no edema Gastrointestinal (Abdomen): Inspection/Auscultation: abdomen normal to inspection and normal bowel sounds; abdomen not distended Percussion/Palpation: + abdomen tender (tender to epigastric region); no guarding Skin: no rashes, warm and dry Neurologic: PERRL, EOMI, accommodation nl, no face palsy, no dysarthria Psychiatric: A+Ox3, euthymic affect Lymphatic: no cervical or axillary lymphadenopathy Results & Data Results & Data ([facility]) Vital Signs (Past 12 Hours) Vital Signs Temp Pulse Pulse Resp BP BP Pulse Ox 06/12/22 20:45 37.2 C 104 H 18 148/92 H 97 06/12/22 17:08 06/12/22 18:15 94 H 18 151/90 H 97 06/12/22 17:08 89 06/12/22 17:06 37.2 C 92 H 18 150/100 H 97 06/12/22 15:06 98 H 150/100 H 98 06/12/22 14:23 82 18 150/100 H 100 O2 Del Method 06/12/22 20:45 Room Air 06/12/22 17:08 Room Air 06/12/22 18:15 Room Air 06/12/22 17:08 06/12/22 17:06 Room Air 06/12/22 15:06 Room Air 06/12/22 14:23 Room Air PG Care Time/CCT Total # of Minutes Spent Total Time Spent with Patient: Total time spent is greater than 50% in coordination of care (as documented) at patient's floor/unit and/or counseling patient: Coding Level of Care Code 39955 SUB INP/OBS CARE 3/50MIN Diagnoses Pancreatitis K85.90 Time Spent (min) 50
[2022-06-13] MEDS: LACTATED RINGER'S 1,000 ML IV SCH (06:07)
[2022-06-13 07:51] LABS: Hematocrit (blood only) 39.9 % (40.1-51.0); Hemoglobin 14.7 g/dl (14.0-18.0); Mean Corpuscular Hemoglobin 35.5 pg (25.0-34.0); Mean Corpuscular Hgb Conc 36.8 g/dL (32.0-36.0); Mean Corpuscular Volume 96.4 fL (80.0-100.0); Platelet Count 192 K/uL (130-400); RDW Coefficient of Variation 11.7 % (11.5-14.5); RDW Standard Deviation 41.4 fL (36.4-46.3); Red Blood Count 4.14 M/uL (4.63-6.08); White Blood Count 8.54 K/ul (4.8-10.8)
[2022-06-13 08:27] LABS: Albumin Level 4.5 gm/dl (3.4-5.0); Bilirubin,Total 1.3 mg/dl (0.2-1.0); Calcium 9.2 mg/dl (8.5-10.1); Potassium 3.5 mmol/L (3.5-5.1)
[2022-06-13 08:33] LABS: Albumin Globulin Ratio 1.5 (0.9-2); BUN Creatinine Ratio 9.5 (10-20); C Reactive Protein 6.64 mg/dl (0-0.5); Creatinine Clr Calc Pharmacy 142.5 ml/min; Est GFR (African American) 147.5 ml/min; Est GFR (Non-African American) 127.3 ml/min; Globulin 3.1 gm/dl (2.5-4.0); Total Protein 7.6 gm/dl (6.0-8.3)
[2022-06-13] MEDS: FAMOTIDINE 20 MG in SYRINGE 3 ML IV SCH (09:15)
[2022-06-13] MEDS: FOLIC ACID 1 MG TAB PO SCH (09:18)
[2022-06-13] MEDS: PANTOprazole 40 MG in SYRINGE 0 ML IV SCH (09:18)
[2022-06-13] MEDS: THIAMINE HCL 100 MG TAB PO SCH (09:18)
[2022-06-13 09:44] LABS: Chol HDL Ratio 2.3 (0-5)
--- NOTE | 2022-06-13 10:09 | Discharge Summary ---
Date of Service June 13, 2022 Admission HPI Per Admitting Provider Ryder Meza is a 27-year-old previously healthy male who is presenting today with abdominal pain. This weekend he was at his uncles cabin binge drinking, reports about 10 alcoholic drinks Saturday evening. Saturday morning he woke up with abdominal pain that was worse after eating a light breakfast. He continued to drink a couple alcoholic beverages Saturday, but notes the abdominal pain persisted and got worse. It is primarily in the central abdomen around his umbilicus with radiation to his back. He has not noticed any fever or chills or vomiting but has been nauseous with minimal oral intake since then. He notes other than this weekend, he typically only drinks 12 times/week, does not have a history of regular alcohol use or withdrawal. No drug use, rare tobacco use. No trauma to the abdomen. Upon presentation to the ED, he is hypertensive 169/106, otherwise vital signs within norm limits and stable. Labs notable for a lipase of 555, AST 156, ALT 139. His T bili is 0.7. CT A/P shows diffuse peripancreatic inflammatory changes and edema consistent with an acute pancreatitis, severe hepatic steatosis, trace ascites and diverticulosis without evidence of acute diverticulitis. Principal Diagnosis pancreatitis Discharge Exam Constitutional WD/WN, vitals as above Eyes PERRL, conjunctivae normal, anicteric sclerae ENMT external ear and nose normal, oropharynx normal Neck trachea midline, no thyromegaly Respiratory normal respiratory effort, lungs clear to auscultation Cardiovascular RRR, no murmur, no edema Gastrointestinal (Abdomen) Inspection/Auscultation: abdomen normal to inspection and normal bowel sounds; abdomen not distended Percussion/Palpation: + abdomen tender (tender to epigastric region); no guarding Skin no rashes, warm and dry Neurologic PERRL, EOMI, accommodation nl, no face palsy, no dysarthria Psychiatric A+Ox3, euthymic affect Lymphatic no cervical or axillary lymphadenopathy Discharge Data Allergies Allergy/AdvReac Type Severity Reaction Status Date / Time No Known Allergies Allergy Unverified 09/13/16 18:29 Consultations 06/11/22 20:30 ED Decision to Admit Stat Ordered Studies 06/11/22 19:22 CT abd pelvis IV con only Stat Hospital Course (1) Pancreatitis: - 3 days of central abdominal pain with radiation to back, nausea following binge drinking this weekend. - Lipase 555. - CTAP: Diffuse peripancreatic inflammatory change/edema consistent with an acute pancreatitis. Severe hepatic steatosis. Trace ascites. Colonic diverticulosis. No evidence for acute diverticulitis. - Received IVF in ED, continue IVF overnight, IV Toradol, morphine for pain control, Zofran for nausea/vomiting. - advance diet to low fat in AM. Appears alcohol is likley playing a large role. Patient will need to establish with a PCP to closely monitor his liver function. Had extensive discussion regarding alcohol intake and recommended alcohol counselling. Patient refused as he states he has family support. - AWSS at risk protocol. Patient denies regular alcohol use beyond once/weekly or history of withdrawal, though CT A/P has severe hepatic steatosis. Patient felt better on 06/13. Patient will be discharged home. Gave him information on alcohol cessation. Plan - Admit to med/surg with telemetry for AWSS. - SCDs for VTE ppx; defer chemoppx given age, mobility. - Full Code. Total Time Total Time Spent Total Time Spent (In Minutes): 35 Discharge Plan Discharge Items Patient Disposition: Home - Self-Care Reason For Visit: pancreatitis Discharge Diagnosis: Pancreatitis Activity: Resume your previous activity Non-emergency contact: Primary Care Provider Call non-emergency contact if: you have any medication questions Follow-up/Referrals: Joseph Retana MD [Primary Care Provider] - 06/20/22 2:05 pm (THIS APPOINTMENT WILL BE WITH DR. YUN) Diet: Low Fat Addtl Attending Provider Instructions: Recommend abstaining completely from alcohol. Please followup with Dr. Retana for followup. May require further testing. Pending Studies at Discharge: No Stand-Alone Forms: [employer], Smoking Cessation Medications and DC Order Prescriptions: No Action No Known Home Medications Discharge Orders: Discharge Order (Routine); Ordered 06/13/22 Ordered By: Dick Wilson Admission Data Admit Date/Time: 06/11/22 21:10 Attending Provider: Dick Wilson Admit Provider: Alessandro Mccormack Primary Care Provider: Joseph Retana Other Providers: Alessandro Mccormack Other Interventions: Discharge Summary Assessment (RN) Last Done: 06/13/22 10:40 Coding Level of Care Code HOSP INP/OBS DISCH >30 MIN Diagnoses Pancreatitis K85.90
[2022-06-13 15:09] LABS: HBSAG NON-REACTIVE (NON-REACTIVE); Hepatitis A Antibody IgM NON-REACTIVE (NON-REACTIVE); Hepatitis B Core Antibody IgM NON-REACTIVE (NON-REACTIVE)
== END 2022-06-13 11:30 | disposition home or self-care (01) | DRG 440 ==
LOC: ED 16:38 → EDINP 21:10 → SUATTDRO 21:10 → 2N 22:13

== ENCOUNTER 2024-07-26 07:35 | Inpatient (IN) ==
--- NOTE | 2024-07-26 07:57 | Emergency Department Note ---
Impression & Plan Acute pancreatitis, Alcohol abuse, Abdominal pain, epigastric ED Provider Note NAME: RYDER BRIDGES AGE: 29 SEX: M : 1995 ARRIVES VIA: Walk-In INFORMANT: [Patient][, ] ED PROVIDER(S): [Ryder Hernandez MD] CHIEF COMPLAINT: Abdominal pain MEDICAL DECISION MAKING: Patient presents due to concern for abdominal pain in the upper abdomen which she feels is consistent with prior pancreatitis. IV was established and blood work was obtained. Patient was ordered IV fluids and IV Zofran. Patient ordered CT abdomen pelvis. Patient declined anything for pain at this time. Patient did want something for pain was ordered IV morphine. Patient with a white count of 15 with a normal hemoglobin. Platelet count is unremarkable. Patient's kidney function unremarkable. Bilirubin 1.5 with an AST and ALT of 79 and 84. Lipase of 2400. Alcohol negative. Patient CT abdomen pelvis does show concern for edematous pancreatitis and fatty liver. I did speak with the on-call hospitalist Dr. Figueroa and the patient was admitted to medicine service. Patient was counseled on alcohol use and advised to consider cessation. Discussion w/ other healthcare providers: None Prior /Outside records reviewed: I reviewed part of a discharge summary from May 2022. Patient had been binge drinking at that time and had associated abdominal pain. At that time the patient was noted to have pancreatitis and fatty liver. Differential diagnosis: Appendicitis, testicular torsion, UTI, diverticulitis, obstruction, renal colic, mesenteric adenitis, enteririts, PUD, pancreatitis, biliary pathology, hernia, volvulus, constipation, as well as other pathologies were considered. Diagnostics, as interpreted by me: ECG: none Cardiac monitoring: An order was placed for continuous cardiac monitoring. The monitor shows a rate of 87 with sinus rhythm. Patient was placed on pulse oximetry Medical decision rules: none Imaging studies: [I informally interpreted the patient's CT abdomen pelvis shows with formal report to follow.] HPI: Patient presents due to concern for abdominal pain ongoing last 2 days which has been fairly constant. Primarily in the left upper quadrant and epigastrium area. Patient denies any falls or trauma. Patient states that he has had nausea and vomiting yesterday. Patient reports drinking alcohol about 4 days ago. He states this feels similar to when he had pancreatitis about a year ago. The patient denies any daily drinking. Patient denies any chest pains or shortness of breath. Patient denies any cough or fever. No leg swelling. Patient states that he did take some Aleve which helped him to sleep. Mild improvement in symptoms. PAST MEDICAL HISTORY: [See Below] PAST SURGICAL HISTORY: [See Below] SOCIAL HISTORY: [See Below] HOME MEDICATIONS: [See Below] ALLERGIES: [See Below] VITALS: [See Below] PHYSICAL EXAMINATION: GENERAL: NAD, non-toxic. Wearing glasses and a neck. EYE EXAM: Normal conjunctiva. PERRL, no anisocoria and EOM's grossly intact w/o pain. OROPHARYNX: Moist mucus membranes, grossly normal dentition. NECK: Trachea midline, no stridor. [Supple, no nuchal rigidity, no adenopathy, non-tender. No signs of meningismus. FROM of the neck with good chin to chest and neck extension.] LUNGS: Clear to auscultation. Normal chest wall mechanics. HEART: NSR, no MRG. ABDOMEN: Abdomen soft, epigastric pain without lower abdominal pain, no masses, no rebound or guarding. BACK: No CVA TTP. SKIN: No rashes and no bruising. UPPER EXTREMITIES: Upper extremities are grossly normal. LOWER EXTREMITIES: Grossly normal, no edema. NEURO EXAM: A&O x3, cranial nerves II-XII grossly intact, normal speech, moves all 4 extremities. Past Med/Surg History Problem List (Updated 07/26/24 @ 15:29 by Ryder Hernandez MD) Abdominal pain, epigastric (Acute) Acute pancreatitis (Acute) Alcohol abuse (Acute) Pancreatitis (Acute) No known health problems Surgical History No significant past surgical history Family History Unknown No problems noted. Uncle Pancreatitis Social History Smoking Status: Never smoker Hx Alcohol Use: Yes Alcohol type: beer Hx Substance Use: Yes Last Used Substance: Days (ago) Last Used Substance Other:: 5 DAYS AGO MARIJUANA Preferred Language: Sammarinese Communication Ability: Effective Picker Tender Helper Required: No Beliefs That Will Affect Care: None Current Living Situation: Family Other Information That Helps Us Care for You: No Feels Safe at Home: Yes Assistive Devices: None Allergies Allergies Allergy/AdvReac Type Severity Reaction Status Date / Time No Known Allergies Allergy Verified 07/26/24 08:51 Home Meds Home Medications Medication Instructions Recorded Confirmed Advil 1 - 2 tabs PO DIRECTED PRN Pain 07/26/24 07/26/24 Allergy Medication 1 tab PO DIRECTED PRN Other 07/26/24 07/26/24 thiamine HCl (vitamin B1) 1 tab PO DAILY 07/26/24 07/26/24 Results & Data (ED) Vital Signs Vital Signs - 24 hr 07/26/24 07:43 07/26/24 08:00 07/26/24 09:15 Temperature 36.5 C Temperature Source Temporal Artery Scan Pulse Rate 108 H 108 H 88 Pulse Rate from SpO2 Sensor Pulse Rhythm Regular Respiratory Rate 18 18 21 Blood Pressure 145/103 H 143/100 H Blood Pressure Mean 117 114 Pulse Oximetry 98 98 Oxygen Delivery Method Room Air Room Air Sepsis New/Unexplained Change in Mental Status No Sepsis Action Taken by Nursing No Action Required 07/26/24 09:25 07/26/24 10:00 07/26/24 10:00 Temperature Temperature Source Pulse Rate 93 H 81 Pulse Rate from SpO2 Sensor 79 Pulse Rhythm Respiratory Rate 29 H Blood Pressure 149/105 H 149/105 H Blood Pressure Mean 117 119 Pulse Oximetry 98 Oxygen Delivery Method Sepsis New/Unexplained Change in Mental Status Sepsis Action Taken by Intermediate Medications Current Medication List: was personally reviewed by me Laboratory Data Attestation: I reviewed the patient's lab results. 07/26/24 08:05 07/26/24 08:05 Lab Results 07/26/24 07/26/24 Range/Units 08:05 08:39 WBC 15.47 H (4.8-10.8) K/ul RBC 5.06 (4.70-6.10) M/uL Hgb 17.3 (14.0-18.0) g/dl Hct 49.7 (42.0-52.0) % MCV 98.2 (80.0-100.0) fL MCH 34.2 H (25.0-34.0) pg MCHC 34.8 (32.0-36.0) g/dL RDW Std Deviation 44.9 (36.4-46.3) fL RDW Coeff of Brett 12.4 (11.5-14.5) % Plt Count 217 (130-400) K/uL MPV 10.2 (9.4-12.4) fL Immature Gran % (Auto) 0.5 % Neut % (Auto) 82.9 % Lymph % (Auto) 3.7 % [place] % (Auto) 12.6 % Eos % (Auto) 0.1 % Baso % (Auto) 0.2 % Neut # (Auto) 12.84 H (1.40-6.50) K/uL Lymph # (Auto) 0.57 L (1.20-3.40) K/uL [place] # (Auto) 1.95 H (0.11-0.59) K/uL Eos # (Auto) 0.01 (0.00-0.50) K/uL Baso # (Auto) 0.03 (0.00-0.20) K/uL Immature Gran # (Auto) 0.07 (0.01-0.20) K/uL PT 11.9 (9.0-12.0) Seconds INR 1.1 (0.9-1.1) Sodium 134 L (136-145) mmol/L Potassium 4.1 (3.5-5.1) mmol/L Chloride 95 L (98-107) mmol/L Carbon Dioxide 26 (21-32) mmol/L Anion Gap 13 H (3-11) BUN 12 (6-23) mg/dl Creatinine 0.75 (0.6-1.4) mg/dl Est Cr Clr Drug Dosing 131.1 ml/min eGFR 126.06 BUN/Creatinine Ratio 16.0 (10-20) Glucose 115 H (70-99(Fasting)) mg/dl Calcium 10.6 H (8.6-10.3) mg/dl Total Bilirubin 1.5 H (0.2-1.0) mg/dl AST 79 H (13-39) U/L ALT 84 H (7-52) U/L Alkaline Phosphatase 43 (34-104) U/L Total Protein 8.3 (6.0-8.3) gm/dl Albumin 5.0 (3.4-5.0) gm/dl Globulin 3.3 (2.5-4.0) gm/dl Albumin/Globulin Ratio 1.5 (0.9-2) Lipase 2464 H (11-82) U/L Ethyl Alcohol mg/dL < 10.0 (<10.0) mg/dl Administered Medications Enoxaparin Sodium (Enoxaparin Inj 40 Mg/0.4 Ml Syr) 40 mg SQ Q24H [facility] Stop: 08/25/24 11:44 Last Admin: 07/26/24 15:25 Dose: Not Given Documented By: JIE Folic Acid (Folic Acid 1 Mg Tab) [facility] Stop: 08/25/24 10:14 Last Admin: 07/26/24 10:38 Dose: 1 mg Documented By: ALESIA Lactated Ringer's (Lr) 1,000 mls @ 125 mls/hr IV .Q8H [facility] Stop: 07/29/24 10:14 Last Admin: 07/26/24 10:38 Dose: 125 mls/hr Documented By: ALESIA Morphine Sulfate (Morphine Sulfate 4 Mg/Ml 1 Ml Carp\Vial) 4 mg IV Q4H PRN PRN Reason: Severe Pain (7,8,9,10) on NRS Stop: 08/09/24 11:44 Last Admin: 07/26/24 12:45 Dose: 4 mg Documented By: JIE Ondansetron HCl (Ondansetron Inj 2 Mg/Ml 2 Ml Vial) 4 mg IV Q6H PRN PRN Reason: Nausea Stop: 08/25/24 11:44 Last Admin: 07/26/24 12:45 Dose: 4 mg Documented By: JIE Thiamine HCl (Thiamine Hcl 100 Mg Tab) [facility] [place] Stop: 08/25/24 10:14 Last Admin: 07/26/24 10:38 Dose: 100 mg Documented By: ALESIA Discontinued Medications Sodium Chloride (Nss) 1,000 mls @ 999 mls/hr IV .Q1H1M ONE Stop: 07/26/24 09:02 Last Infusion: 07/26/24 08:51 Dose: Infused Documented By: Admin: 07/26/24 08:08 Dose: 999 mls/hr Documented By: ALESIA Sodium Chloride (Nss) 1,000 mls @ 999 mls/hr IV .Q1H1M ONE Stop: 07/26/24 10:45 Last Infusion: 07/26/24 10:38 Dose: Infused Documented By: Admin: 07/26/24 09:50 Dose: 999 mls/hr Documented By: ALESIA Ioversol (Optiray 320 100ml) 94 ml IV ONCE ONE Stop: 07/26/24 08:45 Last Admin: 07/26/24 08:44 Dose: 94 ml Documented By: FARHAN Morphine Sulfate (Morphine Sulfate 4 Mg/Ml 1 Ml Carp\Vial) 4 mg IV NOW STA Stop: 07/26/24 08:47 Last Admin: 07/26/24 08:49 Dose: 4 mg Documented By: ALESIA Ondansetron HCl (Ondansetron Inj 2 Mg/Ml 2 Ml Vial) 4 mg IV NOW STA Stop: 07/26/24 08:03 Last Admin: 07/26/24 08:49 Dose: 4 mg Documented By: ALESIA Imaging Data Radiologist's Impression: Abdomen/Pelvis CT 07/26/24 07:[address] WITH IV CONTRAST CT DOSE: 520.25 mGy.cm HISTORY: Acute abdominal pain in patient with history of pancreatitis ab pain; h/o pancreatitis TECHNIQUE: Multiaxial CT images of the abdomen and pelvis were performed following the IV administration of 94 cc of Optiray, A dose lowering technique was utilized adhering to the principles of ALARA. COMPARISON STUDY: 06/11/2022 FINDINGS: Clear lung bases. No pneumatosis or pneumoperitoneum. Unremarkable spleen, gallbladder and adrenal glands. Mild interstitial peripancreatic edema with edema and ascites noted within the lesser sac, abdomen and pelvis. No acute peripancreatic fluid collections. Hepatomegaly with severe hepatic steatosis. There is patency of the hepatic and portal veins. Splenic vein is also patent. Unremarkable kidneys. There is no hydronephrosis. Decompressed urinary bladder. Unremarkable aorta. No lymphadenopathy. No bowel obstruction or bowel wall thickening. Colonic diverticulosis. Normal appendix. Unremarkable soft tissues. No acute fracture. IMPRESSION: 1. Mild interstitial edematous pancreatitis. No acute peripancreatic fluid collection. 2. Hepatomegaly with severe hepatic steatosis. 3. Small volume of abdominal pelvic ascites. 4. Colonic diverticulosis. ACT 112: Negative or not required by law. The above report was generated using voice recognition software. It may contain grammatical, syntax or spelling errors. Electronically signed by: Sebastien Blanchard M.D. 07/26/2024 9:18 AM Discharge Plan Visit Data Chief Complaint: Abdominal Pain Stated Complaint: ABD PAIN ED Provider: Ryder Hernandez Discharge Problem: Acute pancreatitis, Alcohol abuse, Abdominal pain, epigastric Patient Disposition: Admitted As Inpatient Discharge Instructions Interventions: ED Discharge Assessment Last Done: 07/26/24 11:09 Discharge Problem: Acute pancreatitis Qualifiers: Pancreatitis type: alcohol induced Acute pancreatitis complication: no infection or necrosis Qualified Code(s): K85.20 - Alcohol induced acute pancreatitis without necrosis or infection
[2024-07-26] MEDS: SODIUM CHLORIDE 0.9% 1,000 ML IV ONE ×2 (08:08→09:50)
[2024-07-26 08:27] LABS: Basophils # (auto) 0.03 K/uL (0.00-0.20); Basophils % (auto) 0.2 %; Eosinophils # (auto) 0.01 K/uL (0.00-0.50); Eosinophils % (auto) 0.1 %; Hematocrit (blood only) 49.7 % (42.0-52.0); Hemoglobin 17.3 g/dl (14.0-18.0); Immature Granulocytes # (auto) 0.07 K/uL (0.01-0.20); Immature Granulocytes % (auto) 0.5 %; Lymphocytes # (auto) 0.57 K/uL (1.20-3.40); Lymphocytes % (auto) 3.7 %; Mean Corpuscular Hemoglobin 34.2 pg (25.0-34.0); Mean Corpuscular Hgb Conc 34.8 g/dL (32.0-36.0); Mean Corpuscular Volume 98.2 fL (80.0-100.0); Mean Platelet Volume 10.2 fL (9.4-12.4); Monocytes # (auto) 1.95 K/uL (0.11-0.59); Monocytes % (auto) 12.6 %; Neutrophils # (auto) 12.84 K/uL (1.40-6.50); Neutrophils % (auto) 82.9 %; Platelet Count 217 K/uL (130-400); RDW Coefficient of Variation 12.4 % (11.5-14.5); RDW Standard Deviation 44.9 fL (36.4-46.3); Red Blood Count 5.06 M/uL (4.70-6.10); White Blood Count 15.47 K/ul (4.8-10.8)
[2024-07-26 08:39] LABS: Calcium 10.6 mg/dl (8.6-10.3); Creatinine Clr Calc Pharmacy 131.1 ml/min; Potassium 4.1 mmol/L (3.5-5.1)
[2024-07-26] MEDS: OPTIRAY 320 100ml IV ONE (08:44)
[2024-07-26] MEDS: MoRPHine SULFATE 4 MG/ML 1 ML CARP\\VIAL IV STA (08:49)
[2024-07-26] MEDS: ONDANSETRON INJ 2 MG/ML 2 ML VIAL IV STA (08:49)
[2024-07-26 08:58] LABS: Albumin Globulin Ratio 1.5 (0.9-2); Bilirubin,Total 1.5 mg/dl (0.2-1.0); Globulin 3.3 gm/dl (2.5-4.0); Total Protein 8.3 gm/dl (6.0-8.3)
--- NOTE | 2024-07-26 09:21 | CT Scan Report ---
ABDOMEN AND PELVIS CT WITH IV CONTRAST CT DOSE: 520.25 mGy.cm HISTORY: Acute abdominal pain in patient with history of pancreatitis ab pain; h/o pancreatitis TECHNIQUE: Multiaxial CT images of the abdomen and pelvis were performed following the IV administrat ion of 94 cc of Optiray, A dose lowering technique was utilized adhering to the principles of ALARA. COMPARISON STUDY: 06/11/2022 FINDINGS: Clear lung bases. No pneumatosis or pneumoperitoneum. Unremarkable spleen, gallbladder and adrenal glands. Mild interstitial peripancreatic edema with edema and ascites noted within the lesser sac, abdomen and pelvis. No acute peripancreatic fluid collections. Hepatomegaly with severe hepatic steatosis. There is patency of the hepatic and portal veins. Splenic vein is also patent. Unremarkable kidneys. There is no hydronephrosis. Decompressed urinary bladder. Unremarkable aorta. N o lymphadenopathy. No bowel obstruction or bowel wall thickening. Colonic diverticulosis. Normal appe ndix. Unremarkable soft tissues. No acute fracture. IMPRESSION: 1. Mild interstitial edematous pancreatitis. No acute peripancreatic fluid collection. 2. Hepatomegaly with severe hepatic steatosis. 3. Small volume of abdominal pelvic ascites. 4. Colonic diverticulosis. ACT 112: Negative or not required by law. The above report was generated using voice recognition software. It may contain grammatical, syntax o r spelling errors. Electronically signed by: Sebastien Blanchard M.D. 07/26/2024 9:18 AM
--- NOTE | 2024-07-26 09:37 | History & Physical Report ---
Date of Service July 26, 2024 Assessment & Plan (1) Pancreatitis: Plan: 29-year-old male with a history of binge alcohol use who presents with his second episode of pancreatitis without evidence of abscess or infection. Acute recurrent edematous pancreatitis Leukocytosis of 15.47 [address]-A/P: 1. Mild interstitial edematous pancreatitis. No acute peripancreatic fluid collection. 2. Hepatomegaly with severe hepatic steatosis. 3. Small volume of abdominal pelvic ascites. 4. Colonic diverticulosis. No fevers, chills, sweats or CT evidence of infection. Antibiotics deferred Has received 2 L NSS bolus. Will transition over to LR maintenance 125 cc/h Zofran, morphine ordered for nausea/pain control Clears. Patient may take clears as tolerated however is aware that if these cause him any pain or discomfort to hold off and will be kept hydrated by IV. Once improving can advance diet as clinically tolerated Triglyceride level check deferred 2/2 clear likely ETOH cause w/ last pancreatitis admit were normal at 69. Alcohol abuse Alcohol abuse/binge use Difficult about 8 drinks per week, but around every 2 weeks will go out with friends and drink 1214 drinks per night. Episode of increased drinking several days ago. No alcohol intake in the last 2 days due to feeling poorly. Feels similar to prior episodes of pancreatitis although slightly less severe Reports has decreased drinking from the last time he went through withdrawal several months ago at that time was drinking a 12 pack of beer around every 3 days. Reports that every other week he tries to go for around a week without alcohol and has not had withdrawal symptoms recently Last drink 2-3 days ago. He feels dehydrated because he has not been able to eat or drink but is not tachycardic or diaphoretic on exam. Has a minimal bilateral hand tremor on reassessment. AWSS protocol. If worsening tachycardia/diaphoresis/tremors develop then from load with Valium. Do not feel this is required at time of admitting assessment. Reports that he is decided on stopping alcohol as he does not wish to be hospitalized again and did not think he would have recurrent pancreatitis. He reports he is confident that he will be able to stop drinking as he has been able do this for periods of time without difficulty. Declines alcohol support resources and pharmacologic assisted sobriety at this time, but is aware he can reach out to his providers for this at any time if needed. Thiamine, folic acid Fluids as noted Hepatomegaly, severe hepatic steatosis With history of binge alcohol use Discussed progression of hepatic changes associated with alcohol and severity of this given age. Patient is in the preparation stage of change, expresses a commitment to stop drinking and also declines resources at this time as noted. Bilirubin, AST, ALT with mild elevation suspect from alcohol induced hepatitis. Coags added at time of admission. Will trend in a.m. and then further as indicated DVT prophylaxis: Lovenox Diet: Clears Disposition: MSO CODE STATUS: Full code (2) Alcohol abuse: History of Present Illness Primary Care Provider: NO PCP Ryder is a 29-year-old male with a past medical history of pancreatitis who presents with 2 days of epigastric discomfort, nausea, vomiting after drinking alcohol in the previous week. On CT he is found to have mild interstitial edematous pancreatitis, severe hepatic steatosis, and a small volume of abdominal pelvic ascites. Colonic diverticulosis is noted. Ryder reports 'its pancreatitis'. Had pancreatitis which felt similar but much worse a year and ahalf ago. Last time did well with liquids and pain control for a little while then felt better. Current episode began around 2-3 days ago. Went to bed and woke up three hours later with severe epigastric pain. Hoped it would pass so tried to watch it for a while but has gradually worsened Has not been able to eat or drink much in the last 2 days, has been trying to drink water but has been very nauseus. No appetite Vomiting x1, water with no color. No blood or melena. No diarrhea No fevers, chills, or sweats Had a cold a few weeks ago arond May which completely resolved. No other recent illnesses. Takes no prescription medications Has tried taking some advil with no improvement. Takes vitamin B! and allergy medicine OTC as needed. ETOH: - On a normal week drinks 8 drinks per week total. - If he goes out with friends will drink more, around 12-14 drinks in a night. Generally beer or seltzers. Does not drink liquor. Goes out with friends once every 2 days. - Tries to go 3-4 days without alcohol at least every 2 weeks. Had shakes once or twice after drinking a lot, but not recently and thinks this was more related to hangover. Has gone through alcohol withdrawal before and got cold sweats and shaking. Last time he went through withdrawal was ~4-5 months ago. At that time was drinking a 12 pack every 3 days or so routinely. Uses Zyn. No current cigarette use. No vape/smoke use. THC use intermittently Medical History: Reviewed Medications: Reviewed Surgical History: Reviewed Family history: Reviewed Allergies: Reviewed. NKDA. Code Status: Full Code. Surrogate DM would be father Demarcus Meza at [phone]. Allergies Allergy/AdvReac Type Severity Reaction Status Date / Time No Known Allergies Allergy Verified 07/26/24 08:51 Home Medications Medication Instructions Recorded Confirmed Type Advil 1 - 2 tabs PO DIRECTED PRN Pain 07/26/24 07/26/24 History Allergy Medication 1 tab PO DIRECTED PRN Other 07/26/24 07/26/24 History thiamine HCl (vitamin B1) 1 tab PO DAILY 07/26/24 07/26/24 History Past Med/Surg History Problem List (Updated 12/08/23 @ 00:06 by Leatha Salazar) Alcohol abuse Pancreatitis (Acute) No known health problems Surgical History No significant past surgical history Family History Unknown No problems noted. Uncle Pancreatitis Social History Smoking Status: Former smoker Hx Alcohol Use: Yes Preferred Language: Belarusian Communication Ability: Effective Gauge Maker Required: No Beliefs That Will Affect Care: None Current Living Situation: Parent Feels Safe at Home: Yes Assistive Devices: None Physical Exam Physical Exam: General: A&Ox3. NAD. Cooperative. HEENT: Atraumatic, normocephalic. Dry mucous membranes Pulm: CTAB A&P. -wheezes, -rales, -rhonchi. Symmetrical chest rise. No increased work of breathing. No respiratory distress. Cardiac: Initially tachycardic, on reassessment following NSS boluses heart rate is RRR. Radial pulses intact and symmetrical. Abdominal: Moderately tender at the epigastrium. Abdomen is otherwise soft and without rebound/involuntary guarding Extremities: Warm, dry. Minimal resting tremor of the upper extremities. No diaphoresis Results & Data Results & Data Vital Signs (Past 12 Hours) Vital Signs Temp Pulse Resp BP Pulse Ox O2 Del Method 07/26/24 09:25 93 H 07/26/24 08:00 108 H 18 98 Room Air 07/26/24 07:43 36.5 C 108 H 18 145/103 H 98 Room Air PG Care Time/CCT Total # of Minutes Spent Total Time Spent with Patient: Total time spent is greater than 50% in coordination of care (as documented) at patient's floor/unit and/or counseling patient: Coding Level of Care Code 48410 INT INP/OBS CARE 75MIN Diagnoses Pancreatitis K85.20 Acute pancreatitis complication: unspecified Chronicity: acute Pancreatitis type: alcohol induced Alcohol abuse F10.10 (1) Pancreatitis Acute pancreatitis complication: unspecified Chronicity: acute Pancreatitis type: alcohol induced Qualified Code(s): K85.20 - Alcohol induced acute pancreatitis without necrosis or infection
[2024-07-26] MEDS ORDERED: LORazepam 2 MG/1 ML VIAL IV PRN ×3 (10:05)
[2024-07-26] MEDS ORDERED: Ativan IV Alcohol Withdrawal--Active Protocol IV PRN (10:05)
[2024-07-26 10:25] LABS: INR 1.1 (0.9-1.1); Prothrombin Time 11.9 Seconds (9.0-12.0)
[2024-07-26] MEDS: LACTATED RINGER'S 1,000 ML IV SCH (10:38)
[2024-07-26] MEDS: THIAMINE HCL 100 MG TAB PO SCH (10:38)
[2024-07-26] MEDS: FOLIC ACID 1 MG TAB PO SCH (10:38)
[2024-07-26] MEDS ORDERED: MoRPHine SULFATE 2 MG/ML CARP IV PRN (11:45)
[2024-07-26] MEDS: ONDANSETRON INJ 2 MG/ML 2 ML VIAL IV PRN (12:45)
[2024-07-26] MEDS: MoRPHine SULFATE 4 MG/ML 1 ML CARP\\VIAL IV PRN (12:45)
[2024-07-26] MEDS: ENOXAPARIN INJ 40 MG/0.4 ML SYR SQ SCH (15:25)
[2024-07-26] MEDS: KETOROLAC TROMETHAMINE 15 MG/ML VIAL IV PRN (20:40)
[2024-07-26] MEDS: ACETAMINOPHEN 1,000 MG/100 ML VIAL IV STA (22:42)
[2024-07-27 07:35] LABS: Basophils # (auto) 0.02 K/uL (0.00-0.20); Basophils % (auto) 0.2 %; Eosinophils # (auto) 0.18 K/uL (0.00-0.50); Eosinophils % (auto) 1.4 %; Hematocrit (blood only) 43.3 % (42.0-52.0); Hemoglobin 14.7 g/dl (14.0-18.0); Immature Granulocytes # (auto) 0.05 K/uL (0.01-0.20); Immature Granulocytes % (auto) 0.4 %; Lymphocytes # (auto) 0.79 K/uL (1.20-3.40); Lymphocytes % (auto) 6.3 %; Mean Corpuscular Hemoglobin 34.4 pg (25.0-34.0); Mean Corpuscular Hgb Conc 33.9 g/dL (32.0-36.0); Mean Corpuscular Volume 101.4 fL (80.0-100.0); Mean Platelet Volume 10.6 fL (9.4-12.4); Monocytes # (auto) 2.15 K/uL (0.11-0.59); Monocytes % (auto) 17.1 %; Neutrophils % (auto) 74.6 %; Platelet Count 165 K/uL (130-400); RDW Coefficient of Variation 12.7 % (11.5-14.5); RDW Standard Deviation 47.6 fL (36.4-46.3); Red Blood Count 4.27 M/uL (4.70-6.10); White Blood Count 12.59 K/ul (4.8-10.8)
[2024-07-27] MEDS ORDERED: MoRPHine SULFATE 2 MG/ML CARP IV PRN (07:40)
[2024-07-27] MEDS ORDERED: MoRPHine SULFATE 4 MG/ML 1 ML CARP\\VIAL IV PRN (07:40)
[2024-07-27 07:52] VITALS: RESP 18
[2024-07-27 07:56] LABS: Albumin Globulin Ratio 1.6 (0.9-2); Albumin Level 3.9 gm/dl (3.4-5.0); BUN Creatinine Ratio 14.3 (10-20); Bilirubin,Total 1.8 mg/dl (0.2-1.0); Calcium 9.3 mg/dl (8.6-10.3); Creatinine Clr Calc Pharmacy 175.6 ml/min; Globulin 2.5 gm/dl (2.5-4.0); Potassium 4.2 mmol/L (3.5-5.1); Total Protein 6.4 gm/dl (6.0-8.3)
[2024-07-27] MEDS ORDERED: oxyCODONE HCL IR 5 MG TAB (IMMEDIATE RELEASE) PO PRN (08:12)
[2024-07-27 08:25] VITALS: O2SAT 99
[2024-07-27 12:28] VITALS: BP 142/98; PULSE 78; TEMP 99.7
--- NOTE | 2024-07-27 15:52 | Discharge Summary ---
Date of Service July 27, 2024 Admission HPI Per Admitting Provider Ryder is a 29-year-old male with a past medical history of pancreatitis who presents with 2 days of epigastric discomfort, nausea, vomiting after drinking alcohol in the previous week. On CT he is found to have mild interstitial edematous pancreatitis, severe hepatic steatosis, and a small volume of abdominal pelvic ascites. Colonic diverticulosis is noted. Ryder reports 'its pancreatitis'. Had pancreatitis which felt similar but much worse a year and ahalf ago. Last time did well with liquids and pain control for a little while then felt better. Current episode began around 2-3 days ago. Went to bed and woke up three hours later with severe epigastric pain. Hoped it would pass so tried to watch it for a while but has gradually worsened Has not been able to eat or drink much in the last 2 days, has been trying to drink water but has been very nauseus. No appetite Vomiting x1, water with no color. No blood or melena. No diarrhea No fevers, chills, or sweats Had a cold a few weeks ago arond May which completely resolved. No other recent illnesses. Takes no prescription medications Has tried taking some advil with no improvement. Takes vitamin B! and allergy medicine OTC as needed. ETOH: - On a normal week drinks 8 drinks per week total. - If he goes out with friends will drink more, around 12-14 drinks in a night. Generally beer or seltzers. Does not drink liquor. Goes out with friends once every 2 days. - Tries to go 3-4 days without alcohol at least every 2 weeks. Had shakes once or twice after drinking a lot, but not recently and thinks this was more related to hangover. Has gone through alcohol withdrawal before and got cold sweats and shaking. Last time he went through withdrawal was ~4-5 months ago. At that time was drinking a 12 pack every 3 days or so routinely. Uses Zyn. No current cigarette use. No vape/smoke use. THC use intermittently Medical History: Reviewed Medications: Reviewed Surgical History: Reviewed Family history: Reviewed Allergies: Reviewed. NKDA. Code Status: Full Code. Surrogate DM would be father Demarcus Meza at [phone]. Admission Exam Per Admitting Provider General: A&Ox3. NAD. Cooperative. HEENT: Atraumatic, normocephalic. Dry mucous membranes Pulm: CTAB A&P. -wheezes, -rales, -rhonchi. Symmetrical chest rise. No increased work of breathing. No respiratory distress. Cardiac: Initially tachycardic, on reassessment following NSS boluses heart rate is RRR. Radial pulses intact and symmetrical. Abdominal: Moderately tender at the epigastrium. Abdomen is otherwise soft and without rebound/involuntary guarding Extremities: Warm, dry. Minimal resting tremor of the upper extremities. No diaphoresis Principal Diagnosis Acute pancreatitis Alcohol use disorder Discharge Exam Constitutional: WD/WN, vitals as above, NAD, sitting up in bed, pleasant, conver sing easily Respiratory: normal respiratory effort, lungs clear to auscultation, no wheeze, rales, rhonchi. Normal insp/exp effort, no accessory muscle use Cardiovascular: RRR, no murmur, no edema Vessels: no JVD or carotid bruit Chest: normal inspection of chest Abdomen: Mild tenderness present in epigastric region. Skin: no rashes, warm and dry normal turgor Neurologic: PERRL, EOMI, accommodation nl, no face palsy, no dysarthria CN's II- XI intact bilaterally and moves all extremities Psychiatric: A+Ox3, euthymic affect Discharge Data Allergies Allergy/AdvReac Type Severity Reaction Status Date / Time No Known Allergies Allergy Verified 07/26/24 08:51 Consultations 07/26/24 09:45 ED Decision to Admit Stat Ordered Studies 07/26/24 07:57 CT abd pelvis IV con only Stat Hospital Course (1) Acute pancreatitis: (2) Alcohol abuse: Plan Patient presented to the hospital with 2 days of epigastric pain, nausea and vomiting. CT abdomen and pelvis was done which showed mild interstitial edematous pancreatitis, severe hepatic steatosis. Patient reports history of alcohol use disorder with periods of binge drinking. Patient was admitted to medical floor; started on pain control, IV fluids. Over the course of the hospitalization, he reported significant improvement in pain. He was able to tolerate low-fat diet. He reports that he wanted to get discharged home as soon as possible as his pain was well-controlled. Extensive discussion was done with patient to maintain abstinence from alcohol use which he reported that he will do. Patient was recommended to follow-up with PCP next week. I also discussed complications regarding acute pancreatitis which he verbalized understanding. Please note the above document was generated using voice recognition software. It may contain grammatical, syntax or spelling errors. Any formal questions or concerns about the content, text or information contained within the body of this dictation should be directly addressed to the provider for clarification Total Time Total Time Spent Total Time Spent (In Minutes): 45 Total Time Includes: Examination of the Patient, Discharge Planning, Medication Reconciliation, Communication With Other Providers and Other Discharge Plan Discharge Items Patient Disposition: Home - Self-Care Reason For Visit: ABD PAIN Discharge Diagnosis: Acute pancreatitis Alcohol use disorder Alcoholic hepatitis Activity: Resume your previous activity Non-emergency contact: Primary Care Provider Call non-emergency contact if: you have any medication questions and your symptoms worsen Follow-up/Referrals: PCP,NO [Primary Care Provider] - Diet: Regular Addtl Attending Provider Instructions: You were admitted to the hospital due to acute pancreatitis. The likely cause for it is alcohol use. You are found to have enlarged liver secondary to inflammation due to alcohol. Please continue low-fat diet at home. Drink plenty of fluid. For pain control, take Tylenol [id number]. For severe pain, take ibuprofen that is prescribed to you. You are also prescribed omeprazole to be taken once a day for 1 week. Pending Studies at Discharge: No Stand-Alone Forms: My [facility] naaya, Smoking Cessation Medications and DC Order Prescriptions: New thiamine HCl (vitamin B1) 100 mg Tablet 100 mg PO QAM 30 Days Qty: 30 0RF folic acid 1 mg Tablet 1 mg PO QAM 30 Days Qty: 30 0RF ibuprofen 800 mg tablet 800 mg PO Q8H PRN (Reason: pain) Qty: 20 0RF omeprazole 20 mg capsule,delayed release(DR/EC) 20 mg PO DAILY 7 Days Qty: 7 0RF Continued Advil 1 - 2 tabs PO DIRECTED PRN (Reason: Pain) Rx Instructions: otc unknown dose Allergy Medication 1 tab PO DIRECTED PRN (Reason: Other) Rx Instructions: otc unknown dose thiamine HCl (vitamin B1) 1 tab PO DAILY Rx Instructions: otc unknown dose Discharge Orders: Discharge Order (Routine); Ordered 07/27/24 Ordered By: Himanshu Justice Admission Data Admit Date/Time: 07/26/24 10:11 Attending Provider: Himanshu Justice Admit Provider: Spike Figueroa Primary Care Provider: PCP,NO Other Providers: Spike Figueroa Other Interventions: Discharge Summary Assessment (RN) Last Done: 07/27/24 13:51
== END 2024-07-27 14:00 | disposition home or self-care (01) | DRG 440 ==
LOC: ED 07:35 → 3N 10:11 → SUATTDRO 10:11 → 3N 11:10